=== PATIENT | female | born 2000 | race Hispanic/Latino ===

== ENCOUNTER 2021-02-07 23:47 | Emergency (ER) | payer OTHER ==
[2021-02-08] MEDS ORDERED: Lidocaine Viscous Sol 2% 15 ml UD Cup ONE (01:59)
== END 2021-02-08 02:42 | disposition home or self-care (01) ==
LOC: ERS 23:47
DX: R07.0 Pain in throat (principal)
CPT/HCPCS: 99282

== ENCOUNTER 2022-04-15 11:56 | Emergency (ER) | payer OTHER ==
[2022-04-15] MEDS ORDERED: cefTRIAXone\\ROCEPHIN 500 MG VIAL ONE (13:08)
[2022-04-15] MEDS ORDERED: Lidocaine 1% MPF 2 ML VIAL ONE ×2 (13:09→13:11)
[2022-04-15 13:42] LABS: Pregnancy Test - Urine (BHCG) Negative (Negative); Pregu Control Background? CLEAR/WHITE (CLR/WHITE); Pregu Control Bar Appear? YES (CONTROL BAR); Specific Gravity 1.021 (1.002-1.036)
[2022-04-15 13:43] LABS: Bilirubin Negative (Negative); Blood, Urine Negative (Negative); Clarity Extra Turbid (Clear); Glucose, Urine (Dipstick) Normal (Negative); Ketone, Urine Negative (Negative); Leukocyte 500 Leu/uL (Negative); Nitrite Negative (Negative); Protein, Urine (Dipstick) Negative (Neg-Trace); RBC/HPF 0-3 HPF (0-3); Specific Gravity, Urine 1.021 (1.002-1.036); Urobilinogen Normal mg/dL (Less than 2); WBC/HPF 0-3 HPF (0-3)
[2022-04-15 13:48] LABS: Bacteria/HPF Rare-Few HPF (None Seen)
[2022-04-16 11:49] LABS: Chlam.trachomatis by PCR,Urine DETECTED (NotDetected)
== END 2022-04-15 14:01 | disposition home or self-care (01) ==
LOC: ERS 11:56
DX: A64 Unspecified sexually transmitted disease (principal)
CPT/HCPCS: 81003; 81015; 81025; 87491; 87591; 96372; 99284; J0696